=== PATIENT | male | born 1975 | race Caucasian/White ===

== ENCOUNTER → 2019-05-13 11:01 | Outpatient (BNVA) | payer BC, SELFPAY | PROVIDERS: Family Provider Nurse Practitioner Family; PCP Nurse Practitioner Family; Visit Provider Registered Nurse | DX: I10 Essential (primary) hypertension (principal); F41.9 Anxiety disorder, unspecified; R53.83 Other fatigue; E78.5 Hyperlipidemia, unspecified; F41.1 Generalized anxiety disorder; F32.9 Major depressive disorder, single episode, unspecified | CPT/HCPCS: 80053; 80061; 84443; 85025 ==

== ENCOUNTER → 2019-05-24 08:18 | Outpatient (BNVA) | payer BC, SELFPAY | PROVIDERS: Family Provider Nurse Practitioner Family; PCP Nurse Practitioner Family; Visit Provider Registered Nurse | DX: R73.01 Impaired fasting glucose (principal) | CPT/HCPCS: 36416; 82962 ==

== ENCOUNTER → 2020-05-11 09:16 | Outpatient (BNVA) | payer BC, SELFPAY | PROVIDERS: Family Provider Nurse Practitioner Family; PCP Nurse Practitioner Family; Visit Provider Registered Nurse | DX: Z00.00 Encounter for general adult medical examination without abnormal findings (principal); I10 Essential (primary) hypertension; E78.5 Hyperlipidemia, unspecified; K21.9 Gastro-esophageal reflux disease without esophagitis; F41.9 Anxiety disorder, unspecified; R19.7 Diarrhea, unspecified; Z12.5 Encounter for screening for malignant neoplasm of prostate; F41.1 Generalized anxiety disorder | CPT/HCPCS: 80053; 80061; 81000; 85025; G0103 ==

== ENCOUNTER 2020-06-03 08:04 | Outpatient (CLI) | payer BC, SELFPAY ==
--- NOTE | 2020-06-03 08:00 | US_ITS ---
WS: [id number] RIGHT UPPER QUADRANT ULTRASOUND HISTORY: R19.7 - Diarrhea, unspecified COMPARISON: 01/05/2016 Liver: 15.4 cm in length. Normal size liver. No bile duct dilatation or mass. Gallbladder: Normally distended gallbladder with no stones or wall thickening. CBD: 0.4 cm Pancreas: Completely obscured by bowel gas. Right kidney: 11.3 cm in length. Normal size and echogenicity. No hydronephrosis or mass. Aorta and IVC: Unremarkable abdominal aorta and IVC. No ascites. US/US gall bladder [id number] IMPRESSION: 1. Normal gallbladder and liver. 2. Pancreas is completely obscured by bowel gas.
== END 2020-06-03 08:05 | disposition home or self-care (01) ==
LOC: RAD 08:07
PROVIDERS: PCP Registered Nurse; Visit Provider Registered Nurse
DX: R19.7 Diarrhea, unspecified (principal)
CPT/HCPCS: 76705

== ENCOUNTER → 2020-06-17 10:57 | Outpatient (BNVA) | payer BC, SELFPAY | PROVIDERS: PCP Registered Nurse; Visit Provider Surgery | DX: R19.4 Change in bowel habit (principal); K62.5 Hemorrhage of anus and rectum | CPT/HCPCS: 85651; 86140 ==

== ENCOUNTER → 2020-07-01 10:08 | Outpatient (BNVA) | payer BC, SELFPAY | PROVIDERS: PCP Registered Nurse; Visit Provider Surgery | DX: K21.9 Gastro-esophageal reflux disease without esophagitis (principal); R19.7 Diarrhea, unspecified; Z20.822 Contact with and (suspected) exposure to COVID-19 | CPT/HCPCS: 87635 ==

== ENCOUNTER 2020-07-06 06:39 | Day surgery (SDC) | payer BC, SELFPAY ==
[2020-07-02 13:32] VITALS: BMI 30.5
[2020-07-06 07:11] VITALS: BP 164/123; PULSE 68; RESP 16; TEMP 36.1; O2SAT 98
--- NOTE | 2020-07-06 07:18 | ANES.PREANE2 ---
Pre-Anesthetic Assessment Pre-Anesthetic Assessment: Height/Weight: Height 1.83 m Weight 102.058 kg Temp Pulse Resp BP Pulse Ox 97 F L 68 16 164/123 98 07/06/20 07:11 07/06/20 07:11 07/06/20 07:11 07/06/20 07:11 07/06/20 07:11 Preop Diagnosis: Bleeding per rectum Proposed Procedure: Operation Date: 07/06/20 08:00 Proposed Procedures p EGD 16784 [id number] K21.9 R19.7(Not Applicable) - Steven Mays MD s Colonoscopy(Not Applicable) - Steven Mays MD Was Beta Mannie taken within 24 hours: N/A Was Clonidine taken within 24 hours: N/A Last intake: Intake Last Liquid Date 07/05/20 Last Liquid Time 22:00 Last Solid Date 07/04/20 Last Solid Time 22:30 Social: Social History: No alcohol and No tobacco Exam: Pre-Anes Outpt Exam: alert, oriented x 3, clear to auscultation bilaterally and regular rate & rhythm Airway: Submandibular: WNL Cervical ROM: WNL MP: 2 Dentition: Full CV/HEM: CV/HEM: HTN GI: GI: GERD Metabolic: Metabolic: Morbid obesity Anesthetic Plan: ASA status: 2 Anesthesia: MAC Risk of > 500 ml blood loss (7ml/kg in children): No PFSH Anesthesia PFSH: Medical History Essential hypertension Gastroesophageal reflux disease without esophagitis Family History Mother Diabetes Social History Smoking and tobacco status: never smoked Alcohol intake: current Alcohol intake frequency: holidays/special occasions only Alcohol type: beer Adopted: No Caregiver/support person: Yes Lives independently: No Household members: spouse and children Housing: House Marital status: Current occupational status: employed History of recent travel: No Sexually active: Yes Current gender identity: Male Data Anesthesia Cardiac Studies: No Data to Display
[2020-07-06] MEDS: sodium chloride 0.9% 1,000 ML 30 ML IV (07:20)
--- NOTE | 2020-07-06 07:23 | W.PM.OPSFHP ---
Same Day Surgery H&P Indication for Procedure/HPI DATE OF PROCEDURE: July 06, 2020 CHIEF COMPLAINT/INDICATIONFOR SURGICAL PROCEDURE: Bleeding per rectum PREOP DIAGNOSIS: Bleeding per rectum PLANNED PROCEDRUE: Operation Date: 07/06/20 08:00 Proposed Procedures p EGD [id number] K21.9 R19.7(Not Applicable) - Steven Mays MD s Colonoscopy(Not Applicable) - Steven Mays MD This is a pleasant 45 years old gentleman with history of stomach issues patient has been experiencing acid reflux and loose stools and feels gassy most of the time in addition to intermittent bleeding per rectum. Denies history of inflammatory bowel disease or history of colon cancer but he does report history of irritable bowel syndrome of his mom. Patient also reports some pain during defecation every now and then has been on PPI therapy for the past 15 to 20 years per his description and he reports that he still has his gallbladder. Interim history 07/06/2020 Patient comes today for diagnostic EGD and colonoscopy. Ultrasound was done and showed normal findings of the liver and gallbladder. ROS All systems have been reviewed negative except as per the above or per problem list. Medications/Allergies* Home Medications Medication Instructions Recorded Confirmed Type dexlansoprazole [Dexilant] 60 mg PO DAILY 07/02/20 07/02/20 History sertraline 50 mg PO DAILY 07/02/20 07/02/20 History Allergies/Adverse Reactions Allergy/AdvReac Type Severity Reaction Status Date / Time cephalexin [From Keflex] Allergy Unknown Verified 07/06/20 07:26 Penicillins Allergy Unknown Verified 07/06/20 07:26 Current Medications: Generic Name Dose Route Start Last Admin Trade Name Freq PRN Reason Stop Dose Admin Sodium Chloride 1,000 mls @ 30 mls/hr 07/06/20 07:00 07/06/20 07:20 Sodium Chloride 0.9% IV 30 mls/hr .Q24H LAKESHA Administration Pertinent History/Comorbid Conditions* Medical History (Updated 05/29/20 @ 13:07 by Steven Mays MD) Essential hypertension Gastroesophageal reflux disease without esophagitis Family History (Updated 05/13/19 @ 09:41 by Yun Dickerson LPN) Diabetes Mother Social History Smoking and tobacco status: never smoked Alcohol intake: current Alcohol intake frequency: holidays/special occasions only Alcohol type: beer Adopted: No Caregiver/support person: Yes Lives independently: No Household members: spouse and children Housing: House Marital status: Current occupational status: employed History of recent travel: No Sexually active: Yes Current gender identity: Male Pertinent Exam Findings alert, oriented x 3, clear to auscultation bilaterally, regular rate & rhythm and procedure specific exam findings (Abdominal examination nontender nondistended soft.) Recommendations Surgery/Procedure today (Diagnostic EGD and colonoscopy.) Other Plans: Plan of care; After thorough history and physical examination and reviewing the chart, plan to perform a diagnostic esophagogastroduodenoscopy and diagnostic colonoscopy with possible biopsy and possible polypectomy. I discussed with the patient in detail the risks,benefits,alternatives and indications.The risk of aspiration, bleeding, soft tissue injury, perforation of the stomach/esophagus/colon and other potential concomitant complications were explained to the patient in details also the potential need for Thoracotomy and or Laproscoy/Laparotomy to repair any related complications including but not limited to colectomy and or Closotomy. The patient understood this well and did agree to proceed. Rationale was carefully and clearly discussed with the patient.Appropriate informed consent have been reviewed and signed Verbal and written Instructions were given to the patient for colonoscopy prep Coding Level of Care Code Acute Merchandise Execution Leader for Rony Leach
[2020-07-06 08:44] VITALS: BP 117/66; PULSE 68; RESP 16; TEMP 36.1; O2SAT 100
--- NOTE | 2020-07-06 09:04 | ANE.PACU2 ---
Inpatient post-anesthesia follow up: Airway intact: Yes Vital signs: Temperature 97 F Pulse Rate 68 Respiratory Rate 16 Blood Pressure 117/66 Pulse Oximetry 100 Oxygen Delivery Me thod Room Air Oxygen Flow Rate Fraction of Inspir ed Oxygen Hydration adequate: Yes Nausea and vomiting: No Mental status: Baseline
[2020-07-06 09:05] VITALS: BP 85/52; PULSE 62; RESP 16; O2SAT 97
== END 2020-07-06 09:15 | disposition home or self-care (01) ==
PROVIDERS: PCP Registered Nurse; Visit Provider Surgery
PROC: 0DJ08ZZ Inspection of Upper Intestinal Tract, Via Natural or Artificial Opening Endoscopic (ICD-10-PCS; CPT 43235; principal; 2020-07-06 08:00)
PROC: 0DJD8ZZ Inspection of Lower Intestinal Tract, Via Natural or Artificial Opening Endoscopic (ICD-10-PCS; CPT 45378; 2020-07-06 08:00)
DX: K62.5 Hemorrhage of anus and rectum (principal); K21.00 Gastro-esophageal reflux disease with esophagitis, without bleeding; I10 Essential (primary) hypertension; E66.01 Morbid (severe) obesity due to excess calories; Z68.30 Body mass index [BMI] 30.0-30.9, adult
CPT/HCPCS: 43239; 45380; 82274; 83630; 87493; 87506; 88305; 96360; 96361; J2704; J7030

== ENCOUNTER → 2020-10-21 11:03 | Outpatient (BNVA) | payer BC, SELFPAY | PROVIDERS: PCP Registered Nurse; Visit Provider Registered Nurse | DX: R76.8 Other specified abnormal immunological findings in serum (principal); F32.9 Major depressive disorder, single episode, unspecified; R53.83 Other fatigue | CPT/HCPCS: 85025; 86705; 86706; 87340 ==

== ENCOUNTER 2020-11-17 15:53 | Outpatient (CLI) | payer BC, SELFPAY ==
--- NOTE | 2020-11-17 16:36 | XRR_ITS ---
PROCEDURE INFORMATION: Exam: XR Chest Exam date and time: 11/17/2020 4:36 PM Age: 45 years old Clinical indication: Right-sided; Patient HX: Right sided chest pain/discomfort TECHNIQUE: Imaging protocol: XR of the chest. Views: 1 view. COMPARISON: MRI Thoracic Spine w/o* [id number] 02/16/2016 12:05 PM FINDINGS: Lungs: Unremarkable. No consolidation. Pleural spaces: Unremarkable. No pleural effusion. No pneumothorax. Heart/Mediastinum: Unremarkable. No cardiomegaly. Bones/joints: Unremarkable. XR/XR chest 1V [id number] IMPRESSION: No acute findings.
--- NOTE | 2020-11-17 16:36 | XRR_ITS ---
PROCEDURE INFORMATION: Exam: XR Right Hip Exam date and time: 11/17/2020 4:36 PM Age: 45 years old Clinical indication: Hip pain; Right hip; Additional info: M25.551 - pain in right hip TECHNIQUE: Imaging protocol: XR Right hip. Views: 1 view hip with pelvis when performed. COMPARISON: MRI Lumbar Spine w/o [id number] 12/04/2015 4:26 PM FINDINGS: Bones/joints: Negative for fracture. Joint space is preserved. Soft tissues: Unremarkable. XR/XR hip RT 2-3V wo/w pel* [id number] IMPRESSION: No acute findings.
--- NOTE | 2020-11-17 16:36 | XRR_ITS ---
PROCEDURE INFORMATION: Exam: XR Lumbosacral Spine Exam date and time: 11/17/2020 4:36 PM Age: 45 years old Clinical indication: Low back pain; Additional info: M54.5 - low back pain TECHNIQUE: Imaging protocol: XR of the lumbosacral spine. Views: 2 or 3 views. COMPARISON: MRI Lumbar Spine w/o [id number] 12/04/2015 4:26 PM FINDINGS: Bones/joints: Normal. No acute fracture. Normal alignment. Vertebral body and intervertebral disc heights are preserved. Soft tissues: Unremarkable. XR/XR lumbar spine 2-3V* [id number] IMPRESSION: No acute findings.
== END 2020-11-17 15:54 | disposition home or self-care (01) ==
LOC: RAD 16:06
PROVIDERS: PCP Registered Nurse; Visit Provider Internal Medicine
DX: R10.9 Unspecified abdominal pain (principal); M25.551 Pain in right hip; M54.5 Low back pain
CPT/HCPCS: 71045; 72100; 73502; 80053; 87517

== ENCOUNTER → 2021-05-21 09:57 | Outpatient (BNVA) | payer BC, SELFPAY | PROVIDERS: PCP Registered Nurse; Visit Provider Registered Nurse | DX: R53.83 Other fatigue (principal); M25.50 Pain in unspecified joint; F32.9 Major depressive disorder, single episode, unspecified | CPT/HCPCS: 80053; 81000; 84443; 86003; 86431 ==

== ENCOUNTER 2021-05-28 | Outpatient (CLI) | payer BC, SELFPAY | END 2021-05-28 00:01 | disposition home or self-care (01) | LOC: RAD 06-28 14:30 | PROVIDERS: PCP Registered Nurse; Visit Provider Registered Nurse | DX: Z00.00 Encounter for general adult medical examination without abnormal findings (principal) | CPT/HCPCS: 80061; G0103 ==

== ENCOUNTER 2021-07-05 10:00 | Outpatient (CLI) | payer BC, SELFPAY | END 2021-07-05 10:01 | disposition home or self-care (01) | LOC: SLEEP 07-06 09:00 | PROVIDERS: PCP Registered Nurse; Visit Provider Nurse Practitioner Family | DX: G47.33 Obstructive sleep apnea (adult) (pediatric) (principal) | CPT/HCPCS: G0399 ==

== ENCOUNTER → 2022-02-22 09:24 | Outpatient (BNVA) | payer BC, SELFPAY | PROVIDERS: PCP Registered Nurse; Visit Provider Registered Nurse | DX: F41.1 Generalized anxiety disorder (principal); Z00.00 Encounter for general adult medical examination without abnormal findings; I10 Essential (primary) hypertension; Z12.5 Encounter for screening for malignant neoplasm of prostate; K21.9 Gastro-esophageal reflux disease without esophagitis; Z13.6 Encounter for screening for cardiovascular disorders | CPT/HCPCS: 80053; 80061; 81000; 85025; G0103 ==